=== PATIENT | female | born 1985 | race American Indian/Alaskan Native ===

== ENCOUNTER 2021-02-11 23:50 | Outpatient (CLI) | payer BC, MEDICAID ==
[2021-02-12 00:26] VITALS: BP 119/80
[2021-02-12] MEDS ORDERED: LACTATED RINGERS 1,000 ML IV ONE (01:52)
[2021-02-12 02:13] LABS: Bilirubin,Urine NEG (Negative); Blood,Urine NEG (Negative); Color,Urine Yellow (Yellow); Mucus,Urine 1+ /HPF; Protein,Urine <15 mg/dL mg/dL (Negative); Urobilinogen,Urine < 2.0 mg/dL (<2.0)
[2021-02-12] MEDS ORDERED: ACETAMINOPHEN 500 MG TAB PO ONE (02:51)
== END 2021-02-12 03:30 | disposition home or self-care (01) ==
LOC: TRG 23:50 → APU 02-12 01:36 → TRG 02-12 03:30
PROVIDERS: ATTEND Obstetrics & Gynecology
DX: O26.892 Other specified pregnancy related conditions, second trimester (principal); R10.30 Lower abdominal pain, unspecified; O24.312 Unspecified pre-existing diabetes mellitus in pregnancy, second trimester; O10.912 Unspecified pre-existing hypertension complicating pregnancy, second trimester; Z3A.25 25 weeks gestation of pregnancy
CPT/HCPCS: 59025; 81001; 96360; J7120

== ENCOUNTER 2021-05-07 15:08 | Inpatient (IN) | payer BC, MEDICAID ==
[2021-05-07] MEDS ORDERED: LACTATED RINGERS 1,000 ML ONE (15:44)
[2021-05-07] MEDS ORDERED: ACETAMINOPHEN 325 MG TAB PO PRN (15:48)
[2021-05-07] MEDS ORDERED: ONDANSETRON 4 MG/2 ML INJ IV PRN (15:48)
[2021-05-07] MEDS ORDERED: BUTORPHANOL 2 MG/1 ML INJ IV PRN (15:48)
[2021-05-07] MEDS ORDERED: LOPERAMIDE 2 MG CAP PO PRN (15:48)
[2021-05-07] MEDS ORDERED: miSOPROStol 200 MCG TAB PR PRN (15:48)
[2021-05-07] MEDS ORDERED: TERBUTALINE 1 MG/1 ML INJ SUB-Q PRN (15:48)
[2021-05-07] MEDS ORDERED: CARBOPROST TROMETHAMINE 250 MCG/1 ML INJ IM PRN (15:48)
[2021-05-07] MEDS ORDERED: miSOPROStol 25 MCG TAB VG ONE (15:48)
[2021-05-07] MEDS ORDERED: MINERAL OIL 30 ML ORAL LIQD PO PRN (15:48)
[2021-05-07] MEDS ORDERED: METHYLERGONOVINE MALEATE 0.2 MG/ML VIAL IM PRN (15:48)
[2021-05-07] MEDS ORDERED: DINOPROSTONE 10 MG VAG SUPP VG ONE (15:48)
[2021-05-07] MEDS ORDERED: LIDOCAINE (2%) 20 MG/1 ML VIAL 20 ML MDV INFILTRATI ONE (15:48)
[2021-05-07] MEDS ORDERED: OXYTOCIN 10 UNIT/1 ML INJ IM PRN (15:48)
[2021-05-07] MEDS ORDERED: NALOXONE 0.4 MG/1 ML INJ IV PRN (15:48)
[2021-05-07] MEDS ORDERED: ePHEDrine SULFATE 50 MG/1 ML INJ IV PRN (15:48)
[2021-05-07 16:56] LABS: Hematocrit 34.6 % (30.3-42.9); Hemoglobin 11.5 gm/dl (10.1-14.3); Mean Corpuscular HGB Conc 33 % (30-34); Mean Corpuscular Volume 83 fl (79-97); Red Blood Count 4.15 M/mm3 (3.65-5.03); Red Cell Distribution Width 12.9 % (13.2-15.2)
[2021-05-07 17:03] LABS: Platelet Count 155 K/mm3 (140-440)
--- NOTE | 2021-05-07 17:10 | History and Physical Report ---
History of Present Illness Date of examination: 05/07/21 Date of admission: 05/07/21 15:48 Chief complaint: IOL secondary to CHTN History of present illness: 36yo, @ 37.5 wks, initiated care with [facility] [employer] @ 10.2 wks gestation. Her has been complicated by type 2 diabetes, CHTN, positive GBS in urine, and abnormal PAP with HRHPV. Her care was co-managed by [facility] specialist. She presents to [facility] for IOL secondary to CHTN and DM. Reports +FM. Denies any VB or LOF at this time. Labs: B+, antibody negative; rubella immune; VDRL non-reactive; HBsAg negative; HIV negative; HSV2 negative; GC/Chlamydia/Trichomonas negative; MSAFP/Multiple marke r negative; 24 hr urine:103; GBS positive. Past History Past Medical History: diabetes (type II) Past Surgical History: breast surgery (reduction) [employer] History: chlamydia (2015; 2018) Family/Genetic History: hypertension Social history: , lives with family, full code. denies: smoking, alcohol abuse, prescription drug abuse, IV drug use - Obstetrical History Expected Date of Delivery: 05/23/21 Actual Gestation: 37 Week(s) 5 Day(s) : 2 Para: 1 Hx # Term Pregnancies: 1 Number of Pregnancies: 0 Spontaneous Abortions: 0 Induced : 0 Number of Living Children: 1 #1 Infant Gender: Male year: 2[age][birth year] Birthweight: 3.374 kg Method of Delivery: Vaginal Gestational age at delivery: 39 Complications: none Medications and Allergies Allergies Allergy/AdvReac Type Severity Reaction Status Date / Time No Known Allergies Allergy Verified 02/12/21 01:55 Home Medications Medication Instructions Recorded Confirmed Last Taken Type Labetalol 100mg TAB 05/07/21 05/07/21 14:00 History 1 Active Meds: Active Medications Acetaminophen (Acetaminophen 325 Mg Tab) 650 mg PO Q4H PRN PRN Reason: Pain, Mild (1-3) Butorphanol Tartrate (Butorphanol 2 Mg/1 Ml Inj) 2 mg IV Q2H PRN PRN Reason: Pain , Severe (7-10) Carboprost Tromethamine (Carboprost Tromethamine 250 Mcg/1 Ml Inj) 250 mcg IM ONCE PRN PRN Reason: Uterine Bleeding Ephedrine Sulfate (Ephedrine Sulfate 50 Mg/1 Ml Inj) 10 mg IV Q2M PRN PRN Reason: Hypotension Fentanyl (Fentanyl 100 Mcg/2 Ml Inj) 100 mcg IV Q2H PRN PRN Reason: Pain,Severe (7-10) LABOR PAIN Lactated Ringer's (Lactated Ringers) 1,000 mls @ 125 mls/hr IV DIRECT YASHIRA Oxytocin/Sodium Chloride (Pitocin/Ns 30 Unit/500ml) 30 units in 500 mls @ 40 mls/hr IV TITR YASHIRA; Protocol Loperamide HCl (Loperamide 2 Mg Cap) 2 mg PO ONCE PRN PRN Reason: give with Hemabate Methylergonovine Maleate (Methylergonovine Maleate 0.2 Mg/Ml Vial) 0.2 mg IM ONCE PRN PRN Reason: Uterine Bleeding Mineral Oil (Mineral Oil 30 Ml Oral Liqd) 30 ml PO QHS PRN PRN Reason: Constipation Misoprostol (Misoprostol 200 Mcg Tab) 800 mcg TX ONCE PRN PRN Reason: Uterine Bleeding Misoprostol (Misoprostol 25 Mcg Tab) 50 mcg PO Q4H YASHIRA Stop: 05/08/21 05:01 Naloxone HCl (Naloxone 0.4 Mg/1 Ml Inj) 0.1 mg IV Q2MIN PRN PRN Reason: Res Rate </= 8 or 02 SAT < 92% Ondansetron HCl (Ondansetron 4 Mg/2 Ml Inj) 4 mg IV Q8H PRN PRN Reason: Nausea And Vomiting Oxytocin (Oxytocin 10 Unit/1 Ml Inj) 10 unit IM ONCE PRN PRN Reason: Uterine Bleeding Terbutaline Sulfate (Terbutaline 1 Mg/1 Ml Inj) 0.25 mg SUB-Q ONCE PRN PRN Reason: Hyperstimulation/Hypertonicity - Vital Signs Vital signs: Vital Signs Temp Pulse Pulse Ox 98.7 F 105 H 98 05/07/21 15:57 05/07/21 15:57 05/07/21 15:57 Temp Pulse Resp BP Pulse Ox 98.7 F 105 H 127/81 99 05/07/21 15:57 05/07/21 16:57 05/07/21 16:11 05/07/21 16:57 - Physical Exam Breasts: Positive: normal Cardiovascular: Regular rate Lungs: Positive: Normal air movement Abdomen: Positive: other (gravid) Genitourinary (Female): Positive: normal external genitalia, normal perenium Vagina: Positive: normal moisture Uterus: Positive: enlarged (S=D) Extremities: Positive: edema Deep Tendon Reflex Grade: Normal +2 - Obstetrical FHR: category 1 Uterine Contraction Monitor Mode: External Cervical Dilatation: 0 (per RN) Cervical Effacement Percentage: 50 station: -3 Uterine Tone Measurement Phase: Resting Results All other labs normal. Assessment and Plan - Patient Problems (1) Chronic hypertension Current Visit: Yes Status: Acute Plan to address problem: IOL with Cytotec per orders Pain meds as desired per orders Monitor B/Ps closely Anticipate (2) Type 2 diabetes mellitus affecting , antepartum Current Visit: Yes Status: Acute Plan to address problem: Monitor blood glucose levels as ordered (3) Positive GBS test Current Visit: Yes Status: Acute Plan to address problem: Initiate GBS prophylaxis when SROM occurs or when in active labor
[2021-05-07] MEDS: miSOPROStol 25 MCG TAB PO SCH ×2 (17:33→21:38)
[2021-05-07] MEDS ORDERED: AMPICILLIN/NS 2 GM/100 ML 2 GM/100 ML BAG IV ONE (18:18)
[2021-05-07] MEDS ORDERED: AMPICILLIN/NS 1 GM/50 ML 1 GM/50 ML BAG IV SCH (23:00)
[2021-05-07] MEDS: fentaNYL 100 MCG/2 ML INJ IV PRN (23:53)
[2021-05-08] MEDS: miSOPROStol 25 MCG TAB PO SCH ×2 (01:38→05:45)
[2021-05-08] MEDS: fentaNYL 100 MCG/2 ML INJ IV PRN ×4 (02:08→11:41)
[2021-05-08] MEDS: LACTATED RINGERS 1,000 ML IV SCH ×2 (02:39→08:50)
--- NOTE | 2021-05-08 08:29 | Progress Note ---
Assessment and Plan A: IUP at 37w6d Chronic HTN on Labetalol 100 mg BID Pregestational Diabetes, Diet Controlled GBS Positive status P: Routine intrapartum care Continue to closely monitor and status Subjective - Subjective Date of service: 05/08/21 Principal diagnosis: cHTN, GDM, Interval history: Pt without complaints presents. Received cytotec overnight. Pt just ate and showered with plan for pitocin 2 by 2. Patient reports: contractions, no new complaints, no loss of fluid, no vaginal bleeding Objective - Vital Signs Vital Signs: Vital Signs - 12hr 05/07/21 05/07/21 05/07/21 20:31 20:32 20:33 Temperature 98.9 F Pulse Rate 101 H Respiratory Rate Blood Pressure Blood Pressure [Left] O2 Sat by Pulse 100 Oximetry O2 Sat by Pulse 100 Oximetry [ Throughout] 05/07/21 05/07/21 05/07/21 20:36 20:41 20:46 Temperature Pulse Rate 103 H 105 H 101 H Respiratory Rate Blood Pressure 138/84 Blood Pressure [Left] O2 Sat by Pulse 100 100 99 Oximetry O2 Sat by Pulse Oximetry [ Throughout] 05/07/21 05/07/21 05/07/21 20:51 20:56 21:01 Temperature Pulse Rate 113 H 103 H 102 H Respiratory Rate Blood Pressure Blood Pressure [Left] O2 Sat by Pulse 99 99 99 Oximetry O2 Sat by Pulse Oximetry [ Throughout] 05/07/21 05/07/21 05/07/21 21:06 21:12 21:17 Temperature Pulse Rate 99 H 101 H 99 H Respiratory Rate Blood Pressure Blood Pressure [Left] O2 Sat by Pulse 99 99 99 Oximetry O2 Sat by Pulse Oximetry [ Throughout] 05/07/21 05/07/21 05/07/21 21:22 21:27 21:32 Temperature Pulse Rate 103 H 110 H 103 H Respiratory Rate Blood Pressure Blood Pressure [Left] O2 Sat by Pulse 99 99 99 Oximetry O2 Sat by Pulse Oximetry [ Throughout] 05/07/21 05/07/21 05/07/21 21:37 21:42 21:47 Temperature Pulse Rate 107 H 101 H 101 H Respiratory Rate Blood Pressure Blood Pressure [Left] O2 Sat by Pulse 99 99 99 Oximetry O2 Sat by Pulse Oximetry [ Throughout] 01/20/22 01/20/22 01/20/22 21:52 21:57 22:06 Temperature Pulse Rate 95 H 97 H 104 H Respiratory Rate Blood Pressure Blood Pressure [Left] O2 Sat by Pulse 99 99 97 Oximetry O2 Sat by Pulse Oximetry [ Throughout] 05/07/21 05/07/21 05/07/21 22:11 22:16 22:21 Temperature Pulse Rate 94 H 99 H 100 H Respiratory Rate Blood Pressure Blood Pressure [Left] O2 Sat by Pulse 99 98 98 Oximetry O2 Sat by Pulse Oximetry [ Throughout] 05/07/21 05/07/21 05/07/21 22:26 22:31 22:40 Temperature Pulse Rate 98 H 102 H 98 H Respiratory Rate Blood Pressure Blood Pressure [Left] O2 Sat by Pulse 98 97 99 Oximetry O2 Sat by Pulse Oximetry [ Throughout] 05/07/21 05/07/21 05/07/21 22:44 22:45 22:50 Temperature Pulse Rate 90 94 H 97 H Respiratory Rate Blood Pressure 128/77 Blood Pressure [Left] O2 Sat by Pulse 99 99 Oximetry O2 Sat by Pulse Oximetry [ Throughout] 05/07/21 05/07/21 05/07/21 22:55 23:00 23:05 Temperature Pulse Rate 98 H 99 H 98 H Respiratory Rate Blood Pressure Blood Pressure [Left] O2 Sat by Pulse 99 98 100 Oximetry O2 Sat by Pulse Oximetry [ Throughout] 05/07/21 05/07/21 05/07/21 23:10 23:15 23:25 Temperature Pulse Rate 102 H 102 H 107 H Respiratory Rate Blood Pressure Blood Pressure [Left] O2 Sat by Pulse 98 99 98 Oximetry O2 Sat by Pulse Oximetry [ Throughout] 05/07/21 05/07/21 05/07/21 23:30 23:35 23:37 Temperature Pulse Rate 102 H 94 H 94 H Respiratory Rate Blood Pressure 122/73 Blood Pressure [Left] O2 Sat by Pulse 99 98 Oximetry O2 Sat by Pulse Oximetry [ Throughout] 05/07/21 05/07/21 05/07/21 23:40 23:45 23:53 Temperature Pulse Rate 104 H 91 H 92 H Respiratory 18 Rate Blood Pressure Blood Pressure [Left] O2 Sat by Pulse 100 99 99 Oximetry O2 Sat by Pulse Oximetry [ Throughout] 05/07/21 05/08/21 05/08/21 23:58 00:03 00:08 Temperature Pulse Rate 92 H 95 H 98 H Respiratory Rate Blood Pressure Blood Pressure [Left] O2 Sat by Pulse 97 97 97 Oximetry O2 Sat by Pulse Oximetry [ Throughout] 05/08/21 05/08/21 05/08/21 00:13 00:18 00:23 Temperature Pulse Rate 99 H 99 H 94 H Respiratory Rate Blood Pressure Blood Pressure [Left] O2 Sat by Pulse 98 98 99 Oximetry O2 Sat by Pulse Oximetry [ Throughout] 05/08/21 05/08/21 05/08/21 00:28 00:33 00:37 Temperature Pulse Rate 91 H 103 H 92 H Respiratory Rate Blood Pressure 128/72 Blood Pressure [Left] O2 Sat by Pulse 98 98 Oximetry O2 Sat by Pulse Oximetry [ Throughout] 05/08/21 05/08/21 05/08/21 00:38 00:43 00:48 Temperature Pulse Rate 97 H 99 H 102 H Respiratory Rate Blood Pressure Blood Pressure [Left] O2 Sat by Pulse 98 98 99 Oximetry O2 Sat by Pulse Oximetry [ Throughout] 05/08/21 05/08/21 05/08/21 00:53 00:58 01:03 Temperature Pulse Rate 102 H 102 H 93 H Respiratory 18 Rate Blood Pressure Blood Pressure [Left] O2 Sat by Pulse 98 97 99 Oximetry O2 Sat by Pulse Oximetry [ Throughout] 05/08/21 05/08/21 05/08/21 01:09 01:14 01:19 Temperature Pulse Rate 105 H 93 H 95 H Respiratory Rate Blood Pressure Blood Pressure [Left] O2 Sat by Pulse 99 98 99 Oximetry O2 Sat by Pulse Oximetry [ Throughout] 05/08/21 05/08/21 05/08/21 01:24 01:30 01:36 Temperature 98.9 F Pulse Rate 93 H 96 H Respiratory Rate Blood Pressure Blood Pressure [Left] O2 Sat by Pulse 100 99 Oximetry O2 Sat by Pulse Oximetry [ Throughout] 05/08/21 05/08/21 05/08/21 01:41 01:46 01:51 Temperature Pulse Rate 97 H 91 H 91 H Respiratory Rate Blood Pressure Blood Pressure [Left] O2 Sat by Pulse 99 99 99 Oximetry O2 Sat by Pulse Oximetry [ Throughout] 05/08/21 05/08/21 05/08/21 01:56 02:04 02:08 Temperature Pulse Rate 89 96 H Respiratory 18 Rate Blood Pressure Blood Pressure [Left] O2 Sat by Pulse 99 99 Oximetry O2 Sat by Pulse Oximetry [ Throughout] 05/08/21 05/08/21 05/08/21 02:09 02:14 02:19 Temperature Pulse Rate 95 H 98 H 97 H Respiratory Rate Blood Pressure Blood Pressure [Left] O2 Sat by Pulse 98 98 98 Oximetry O2 Sat by Pulse Oximetry [ Throughout] 05/08/21 05/08/21 05/08/21 02:24 02:29 02:34 Temperature Pulse Rate 98 H 95 H 100 H Respiratory Rate Blood Pressure Blood Pressure [Left] O2 Sat by Pulse 98 99 99 Oximetry O2 Sat by Pulse Oximetry [ Throughout] 05/08/21 05/08/21 05/08/21 02:37 02:39 02:44 Temperature Pulse Rate 96 H 95 H 99 H Respiratory Rate Blood Pressure 124/68 Blood Pressure [Left] O2 Sat by Pulse 99 99 Oximetry O2 Sat by Pulse Oximetry [ Throughout] 05/08/21 05/08/21 05/08/21 02:49 02:54 02:59 Temperature Pulse Rate 100 H 103 H 100 H Respiratory Rate Blood Pressure Blood Pressure [Left] O2 Sat by Pulse 98 99 99 Oximetry O2 Sat by Pulse Oximetry [ Throughout] 05/08/21 05/08/21 05/08/21 03:04 03:08 03:09 Temperature Pulse Rate 100 H 103 H Respiratory 18 Rate Blood Pressure Blood Pressure [Left] O2 Sat by Pulse 99 99 Oximetry O2 Sat by Pulse Oximetry [ Throughout] 05/08/21 05/08/21 05/08/21 03:14 03:19 03:24 Temperature Pulse Rate 100 H 102 H 102 H Respiratory Rate Blood Pressure Blood Pressure [Left] O2 Sat by Pulse 99 99 99 Oximetry O2 Sat by Pulse Oximetry [ Throughout] 05/08/21 05/08/21 05/08/21 03:29 03:34 03:37 Temperature Pulse Rate 105 H 97 H 102 H Respiratory Rate Blood Pressure 134/76 Blood Pressure [Left] O2 Sat by Pulse 99 99 Oximetry O2 Sat by Pulse Oximetry [ Throughout] 05/08/21 05/08/21 05/08/21 03:39 03:44 03:52 Temperature Pulse Rate 102 H 103 H 101 H Respiratory Rate Blood Pressure Blood Pressure [Left] O2 Sat by Pulse 98 99 100 Oximetry O2 Sat by Pulse Oximetry [ Throughout] 05/08/21 05/08/21 05/08/21 03:57 04:02 04:07 Temperature Pulse Rate 102 H 101 H 100 H Respiratory Rate Blood Pressure Blood Pressure [Left] O2 Sat by Pulse 99 99 99 Oximetry O2 Sat by Pulse Oximetry [ Throughout] 05/08/21 05/08/21 05/08/21 04:12 04:17 04:22 Temperature Pulse Rate 109 H 109 H 110 H Respiratory Rate Blood Pressure Blood Pressure [Left] O2 Sat by Pulse 98 100 98 Oximetry O2 Sat by Pulse Oximetry [ Throughout] 05/08/21 05/08/21 05/08/21 04:27 04:32 04:37 Temperature Pulse Rate 104 H 103 H 102 H Respiratory Rate Blood Pressure 123/76 Blood Pressure [Left] O2 Sat by Pulse 100 98 98 Oximetry O2 Sat by Pulse Oximetry [ Throughout] 05/08/21 05/08/21 05/08/21 04:42 04:47 04:52 Temperature Pulse Rate 102 H 99 H 118 H Respiratory Rate Blood Pressure Blood Pressure [Left] O2 Sat by Pulse 99 99 98 Oximetry O2 Sat by Pulse Oximetry [ Throughout] 05/08/21 05/08/21 05/08/21 04:57 05:02 05:07 Temperature Pulse Rate 109 H 106 H 106 H Respiratory Rate Blood Pressure Blood Pressure [Left] O2 Sat by Pulse 98 98 100 Oximetry O2 Sat by Pulse Oximetry [ Throughout] 05/08/21 05/08/21 05/08/21 05:13 05:18 05:23 Temperature Pulse Rate 107 H 107 H 104 H Respiratory Rate Blood Pressure Blood Pressure [Left] O2 Sat by Pulse 99 99 98 Oximetry O2 Sat by Pulse Oximetry [ Throughout] 05/08/21 05/08/21 05/08/21 05:28 05:33 05:36 Temperature Pulse Rate 102 H 101 H 100 H Respiratory Rate Blood Pressure Blood Pressure [Left] O2 Sat by Pulse 98 99 94 Oximetry O2 Sat by Pulse Oximetry [ Throughout] 05/08/21 05/08/21 05/08/21 05:37 05:40 05:45 Temperature Pulse Rate 96 H 95 H 98 H Respiratory Rate Blood Pressure 128/81 Blood Pressure [Left] O2 Sat by Pulse 99 99 Oximetry O2 Sat by Pulse Oximetry [ Throughout] 05/08/21 05/08/21 05/08/21 05:50 05:55 06:00 Temperature Pulse Rate 102 H 102 H 107 H Respiratory 18 Rate Blood Pressure Blood Pressure [Left] O2 Sat by Pulse 99 97 97 Oximetry O2 Sat by Pulse Oximetry [ Throughout] 05/08/21 05/08/21 05/08/21 06:05 06:06 06:10 Temperature Pulse Rate 107 H 104 H 101 H Respiratory Rate Blood Pressure Blood Pressure [Left] O2 Sat by Pulse 96 94 97 Oximetry O2 Sat by Pulse Oximetry [ Throughout] 05/08/21 05/08/21 05/08/21 06:15 06:20 06:25 Temperature Pulse Rate 99 H 101 H 101 H Respiratory Rate Blood Pressure Blood Pressure [Left] O2 Sat by Pulse 98 96 97 Oximetry O2 Sat by Pulse Oximetry [ Throughout] 05/08/21 05/08/21 05/08/21 06:30 06:35 06:38 Temperature Pulse Rate 99 H 97 H 90 Respiratory Rate Blood Pressure 126/69 Blood Pressure [Left] O2 Sat by Pulse 97 99 Oximetry O2 Sat by Pulse Oximetry [ Throughout] 05/08/21 05/08/21 05/08/21 06:40 06:45 06:50 Temperature Pulse Rate 94 H 93 H 95 H Respiratory 18 Rate Blood Pressure Blood Pressure [Left] O2 Sat by Pulse 98 99 99 Oximetry O2 Sat by Pulse Oximetry [ Throughout] 05/08/21 05/08/21 05/08/21 06:55 07:00 07:05 Temperature Pulse Rate 99 H 93 H 92 H Respiratory Rate Blood Pressure Blood Pressure [Left] O2 Sat by Pulse 100 99 99 Oximetry O2 Sat by Pulse Oximetry [ Throughout] 05/08/21 05/08/21 05/08/21 07:10 07:15 07:20 Temperature Pulse Rate 95 H 95 H 98 H Respiratory Rate Blood Pressure Blood Pressure [Left] O2 Sat by Pulse 100 99 99 Oximetry O2 Sat by Pulse Oximetry [ Throughout] 05/08/21 05/08/21 05/08/21 07:23 07:25 07:30 Temperature 98.8 F Pulse Rate 98 H 90 Respiratory 16 Rate Blood Pressure 140/89 Blood Pressure 140/89 [Left] O2 Sat by Pulse 100 100 Oximetry O2 Sat by Pulse 100 Oximetry [ Throughout] 05/08/21 05/08/21 07:35 07:38 Temperature Pulse Rate 97 H 92 H Respiratory Rate Blood Pressure 146/94 Blood Pressure [Left] O2 Sat by Pulse 99 Oximetry O2 Sat by Pulse Oximetry [ Throughout] - Exam Breasts: deferred Abdomen: Present: soft (gravid ) FHR: auscultation normal Uterine Contraction Monitor Mode: External Cervical Dilatation: 1.5 (per RN ) Uterine Contraction Pattern: Irregular Uterine Tone Measurement Phase: Resting Uterine Contraction Intensity: Mild Extremities: edema (trace) - Labs Labs: Abnormal Labs 05/07/21 16:25 RDW 12.9 L Laboratory Results - last 24 hr 05/07/21 05/07/21 16:25 16:25 WBC 9.6 RBC 4.15 Hgb 11.5 Hct 34.6 MCV 83 MCH 28 MCHC 33 RDW 12.9 L Plt Count 155 Blood Type B POSITIVE Antibody Screen Negative
[2021-05-08] MEDS ORDERED: OXYTOCIN DRIP 30 UNITS/500 ML BAG IV SCH (09:00)
[2021-05-08] MEDS ORDERED: fentaNYL-BUPIV 2 MCG/ML-0.125% 200 MCG/100 ML BAG EPIDURAL ONE (13:27)
[2021-05-08] MEDS ORDERED: ePHEDrine SULFATE 50 MG/1 ML INJ IV PRN (13:45)
[2021-05-08] MEDS ORDERED: NALOXONE 2 MG/2 ML INJ IV PRN (13:45)
--- NOTE | 2021-05-08 13:46 | Anesthesia Day of Surgery ---
Anesthesia Day of Surgery - Day of Surgery Patient Examined: Yes Patient H&P Reviewed: Yes Patient is NPO: Yes
--- NOTE | 2021-05-08 13:48 | Anesthesia Consultation ---
Anesthesia Consult and Med Hx Date of service: 05/08/21 - Airway Mallampati Class: Class II Intubation Access Assessment: Probably Good - Pre-Operative Health Status ASA Pre-Surgery Classification: ASA2 Proposed Anesthetic Plan: Epidural (GA if needed) - Pulmonary Hx Asthma: No - Cardiovascular System Hx Hypertension: Yes - Central Nervous System Hx Seizures: No Hx Psychiatric Problems: No - Endocrine Hx Renal Disease: No Hx Hypothyroidism: No Hx Hyperthyroidism: No - Hematic Hx Sickle Cell Disease: No - Other Systems Hx Alcohol Use: No
[2021-05-08] MEDS ORDERED: fentaNYL-BUPIV 2 MCG/ML-0.125% 200 MCG/100 ML BAG EPIDURAL SCH (14:00)
--- NOTE | 2021-05-08 17:04 | Event Note ---
Date: 05/08/21 On-call physician called regarding difficulty obtaining continuous monitoring externally. RN given permission to place FSE.
[2021-05-08] MEDS: OXYTOCIN DRIP 30 UNITS/500 ML BAG IV SCH ×2 (17:39→18:13)
--- NOTE | 2021-05-08 18:03 | Procedure Note ---
OB Delivery Note - Delivery Date of Delivery: 05/08/21 Surgeon: CIARA FLOWERS Estimated blood loss: 300cc - Vaginal Delivery presentation: vertex Delivery position: OA Intrapartum events: PROM->1hr before delivery, decreased FHT variability, mult.variable deceleratio, shoulder dystocia (Head delivered LIZZY. Shoulder dystocia ~ 30 seconds relieved with Antony and suprapubic pressure. Shoulders and body then delivered. placed on maternal abdomen. Cord clamped and cut and handed to NICU staff in attendance ) Delivery induction: misoprostol Delivery augmentation: pitocin Delivery monitor: external uterine, internal FHT Route of delivery: Delivery placenta: spontaneous Episiotomy: none Delivery laceration: other (midline periurethral, bilateral labial. left labial hemostatic. right labial repaired with 2-0 chromic in a figure of eight fashion) Delivery repair: chromic Anesthesia: epidural - A at 1 minute: 6 at 5 minutes: 9 Gender: Male (3330g (7lb 5oz) @ 1733 pm)
[2021-05-08] MEDS ORDERED: MAGNESIUM SULFATE 4 GM/100 ML BAG IV ONE (18:59)
[2021-05-08] MEDS ORDERED: MAGNESIUM SULFATE 40GM/1000ML 40 GM/1,000 ML BAG IV SCH (19:00)
[2021-05-08] MEDS ORDERED: WITCH HAZEL/ GLYCERIN PAD TP PRN (21:16)
[2021-05-08] MEDS ORDERED: PROMETHAZINE 25 MG TAB PO PRN (21:16)
[2021-05-08] MEDS ORDERED: LANOLIN/ZINC/DIMETHICONE (LANSINOH) 7 GM TP PRN ×2 (21:16)
[2021-05-08] MEDS ORDERED: MAGNESIUM HYDROXIDE (MOM) ORAL LIQD UDC PO PRN (21:16)
[2021-05-08] MEDS ORDERED: PROMETHAZINE 25 MG RECT SUPP PR PRN (21:16)
[2021-05-08] MEDS ORDERED: diphenhydrAMINE 25 MG CAP PO PRN (21:16)
[2021-05-08] MEDS ORDERED: BENZOCAINE/MENTHOL 20/0.5% TOP SPRAY 56 GM TP PRN (21:16)
[2021-05-08] MEDS ORDERED: ONDANSETRON 4 MG/2 ML INJ IV PRN (21:16)
[2021-05-08] MEDS ORDERED: HYDROcodone/ACETAMINOPHEN 5-325 MG TAB PO PRN (21:16)
[2021-05-08] MEDS: IBUPROFEN 600 MG TAB PO SCH (21:59)
[2021-05-08] MEDS: FERROUS SULFATE 325 MG TAB PO SCH (21:59)
[2021-05-09] MEDS: IBUPROFEN 600 MG TAB PO SCH (06:00)
[2021-05-09] MEDS ORDERED: LACTATED RINGERS 1,000 ML IV SCH (06:00)
[2021-05-09 07:42] LABS: Hematocrit 31.4 % (30.3-42.9)
[2021-05-09] MEDS: FERROUS SULFATE 325 MG TAB PO SCH ×2 (10:01→21:58)
--- NOTE | 2021-05-09 13:23 | Post Anesthesia Evaluation ---
- Post Anesthesia Evaluation Patient Participated: Yes Airway Patent: Yes Stable Respiratory Function: Yes Nausea/Vomiting: No Temp > 96.8F: Yes Pain Manageable: Yes Adequeate Hydration: Yes Anesthesia Complications: No Block Receding Appropriately: Yes Patient on Ventilator: No
--- NOTE | 2021-05-09 15:59 | Progress Note ---
Assessment and Plan day 1 status post with a subsequent mild hemorrhage, now resolved. Patient is doing well. She has no complaints. Consider discharge tomorrow. Subjective - Subjective Date of service: 05/09/21 Principal diagnosis: cHTN, GDM, Interval history: Patient delivered on yesterday evening approximately 5:30 PM. She was placed on mat for blood pressures. During the night patient had 2 episodes where large clots were expressed. A Cytotec 800 mg was placed per rectum. At that point the magnesium was DC'd to allow for better hemostasis. The magnesium was restarted 2 hours later subsequently another large clot was expressed. The patient's pressure has been well controlled on her current regimen of labetalol 100 twice a day. The magnesium was discontinued and she was moved to mother- baby Patient reports: appetite normal, voiding normally, pain well controlled : doing well Objective - Vital Signs Latest vital signs: Vital Signs Temp Pulse Resp BP BP Pulse Ox Pulse Ox 05/09/21 13:10 98.7 F 95 H 18 120/68 100 100 05/09/21 12:09 94 H 99 05/09/21 12:04 89 99 05/09/21 11:59 86 129/78 100 05/09/21 11:54 91 H 100 05/09/21 11:49 100 H 99 05/09/21 11:44 89 132/80 100 05/09/21 11:39 100 H 99 05/09/21 11:34 101 H 99 05/09/21 11:30 96 H 135/82 05/09/21 11:29 101 H 99 05/09/21 11:24 99 H 98 05/09/21 11:19 100 H 100 05/09/21 11:15 95 H 120/71 05/09/21 11:14 94 H 99 05/09/21 11:09 91 H 100 05/09/21 10:42 94 H 100 05/09/21 10:37 99 H 100 05/09/21 10:32 101 H 100 05/09/21 10:30 95 H 121/69 05/09/21 10:27 98 H 99 05/09/21 10:22 99 H 100 05/09/21 10:17 107 H 99 05/09/21 10:15 96 H 135/86 05/09/21 10:12 95 H 100 05/09/21 10:07 93 H 100 05/09/21 10:02 98 H 100 05/09/21 09:57 94 H 99 05/09/21 09:52 102 H 100 05/09/21 09:47 91 H 98 05/09/21 09:46 98 05/09/21 09:42 91 H 98 05/09/21 09:37 96 H 98 05/09/21 09:33 86 113/62 05/09/21 09:32 92 H 98 05/09/21 09:27 89 98 05/09/21 09:22 89 99 05/09/21 09:17 89 99 05/09/21 09:12 91 H 98 05/09/21 09:07 100 H 100 05/09/21 09:02 93 H 128/73 99 05/09/21 08:57 100 H 100 05/09/21 08:52 99 H 100 05/09/21 08:47 95 H 99 05/09/21 08:42 99 H 100 05/09/21 08:37 99 H 100 05/09/21 08:32 100 H 133/78 99 05/09/21 08:27 93 H 100 05/09/21 08:22 93 H 99 05/09/21 08:17 82 99 05/09/21 08:12 101 H 100 05/09/21 08:07 96 H 100 05/09/21 08:02 86 125/73 99 05/09/21 07:57 85 100 05/09/21 07:52 88 99 05/09/21 07:47 89 99 05/09/21 07:42 87 100 05/09/21 07:37 89 99 05/09/21 07:32 85 120/72 99 05/09/21 07:27 92 H 99 05/09/21 07:22 92 H 99 05/09/21 07:17 98 H 100 05/09/21 07:12 87 98 05/09/21 07:07 99 H 100 05/09/21 07:03 90 121/60 05/09/21 07:02 90 97 05/09/21 06:57 90 97 05/09/21 06:52 95 H 100 05/09/21 06:47 89 98 05/09/21 06:42 91 H 99 05/09/21 06:37 91 H 99 05/09/21 06:33 88 133/81 05/09/21 06:32 87 99 05/09/21 06:27 89 99 05/09/21 06:22 86 99 05/09/21 06:17 91 H 100 05/09/21 06:12 89 100 05/09/21 06:07 92 H 100 05/09/21 06:03 87 134/79 05/09/21 06:02 86 98 05/09/21 05:57 92 H 99 05/09/21 05:52 94 H 99 05/09/21 05:47 95 H 99 05/09/21 05:42 95 H 99 05/09/21 05:37 101 H 99 05/09/21 05:33 90 124/80 05/09/21 05:32 89 99 05/09/21 05:27 95 H 99 05/09/21 05:22 93 H 98 05/09/21 05:17 98 H 99 05/09/21 05:16 97 H 93 05/09/21 05:12 95 H 97 05/09/21 05:07 101 H 100 05/09/21 05:03 94 H 121/71 05/09/21 05:02 95 H 98 05/09/21 04:57 95 H 99 05/09/21 04:52 99 H 97 05/09/21 04:47 104 H 99 05/09/21 04:42 93 H 99 05/09/21 04:37 94 H 99 05/09/21 04:33 103 H 102/69 05/09/21 04:32 98 H 99 05/09/21 04:27 92 H 99 05/09/21 04:22 95 H 99 05/09/21 04:17 91 H 99 05/09/21 04:12 92 H 99 05/09/21 04:07 90 99 05/09/21 04:03 91 H 100/51 05/09/21 04:02 90 99 05/09/21 03:57 93 H 99 05/09/21 03:52 96 H 100 05/09/21 03:47 90 99 05/09/21 03:42 94 H 99 05/09/21 03:37 98.5 F 90 18 102/57 99 05/09/21 03:33 95 H 102/57 05/09/21 03:32 96 H 99 05/09/21 03:27 97 H 99 05/09/21 03:22 92 H 99 05/09/21 03:17 95 H 99 05/09/21 03:12 95 H 98 05/09/21 03:07 106 H 100 05/09/21 03:03 97 H 123/69 05/09/21 03:02 96 H 98 05/09/21 02:57 102 H 96 05/09/21 02:52 100 H 98 05/09/21 02:50 105 H 93 05/09/21 02:47 100 H 99 05/09/21 02:42 98 H 99 05/09/21 02:37 100 H 99 05/09/21 02:33 101 H 102/51 05/09/21 02:32 101 H 98 05/09/21 02:27 102 H 98 05/09/21 02:22 96 H 98 05/09/21 02:17 103 H 98 05/09/21 02:12 98 H 98 05/09/21 02:07 98 H 98 05/09/21 02:03 100 H 104/56 05/09/21 02:02 101 H 99 05/09/21 01:57 99 H 99 05/09/21 01:52 98 H 99 05/09/21 01:47 99 H 99 05/09/21 01:42 99 H 98 05/09/21 01:37 98 H 99 05/09/21 01:33 96 H 103/55 05/09/21 01:32 100 H 99 05/09/21 01:27 99 H 99 05/09/21 01:22 103 H 99 05/09/21 01:17 102 H 100 05/09/21 01:12 100 H 99 05/09/21 01:07 100 H 100 05/09/21 01:03 111 H 128/64 05/09/21 01:02 109 H 99 05/09/21 00:57 104 H 99 05/09/21 00:52 97 H 98 05/09/21 00:47 97 H 98 05/09/21 00:42 99 H 97 05/09/21 00:37 98 H 97 05/09/21 00:33 98 H 119/63 05/09/21 00:32 98 H 99 05/09/21 00:27 98 H 99 05/09/21 00:22 106 H 99 05/09/21 00:17 98 H 99 05/09/21 00:12 98 H 98 05/09/21 00:07 99 H 98 05/09/21 00:05 98.3 F 102 H 18 104/57 98 05/09/21 00:02 98 H 104/57 98 05/08/21 23:57 98 H 118/58 100 05/08/21 23:54 18 05/08/21 23:52 102 H 115/69 99 05/08/21 23:47 100 H 118/71 98 05/08/21 23:42 103 H 116/70 99 05/08/21 23:37 99 H 111/71 99 05/08/21 23:32 99 H 124/69 98 05/08/21 23:27 101 H 117/68 98 05/08/21 23:22 109 H 113/68 97 05/08/21 23:17 113 H 111/68 97 05/08/21 23:12 109 H 119/71 97 05/08/21 23:07 109 H 118/74 98 05/08/21 23:02 108 H 126/74 98 05/08/21 22:57 106 H 132/84 99 05/08/21 22:52 104 H 133/83 99 05/08/21 22:47 106 H 136/90 99 05/08/21 22:42 103 H 131/87 100 05/08/21 22:37 107 H 131/83 99 05/08/21 22:32 110 H 135/84 98 05/08/21 22:27 107 H 134/81 99 05/08/21 22:23 121 H 138/81 05/08/21 22:22 125 H 100 05/08/21 22:17 111 H 145/91 100 05/08/21 22:12 117 H 130/84 98 05/08/21 22:07 112 H 134/84 98 05/08/21 22:03 129 H 150/97 05/08/21 22:02 130 H 98 05/08/21 21:59 102 H 130/78 05/08/21 21:57 122 H 130/78 98 05/08/21 21:52 124 H 126/74 98 05/08/21 21:47 130 H 131/75 98 05/08/21 21:42 126 H 129/78 99 05/08/21 21:37 122 H 132/73 98 05/08/21 21:32 121 H 131/74 99 05/08/21 21:28 117 H 131/60 05/08/21 21:27 116 H 99 05/08/21 21:22 121 H 99 05/08/21 21:17 116 H 150/92 99 05/08/21 21:12 117 H 147/95 100 05/08/21 21:07 110 H 155/96 100 05/08/21 21:02 114 H 146/98 100 05/08/21 20:58 113 H 159/89 05/08/21 20:57 113 H 100 05/08/21 20:53 114 H 142/111 05/08/21 20:52 114 H 100 05/08/21 20:47 115 H 159/99 100 05/08/21 20:42 115 H 156/99 100 05/08/21 20:37 117 H 158/99 99 05/08/21 20:32 123 H 164/102 98 05/08/21 20:27 118 H 158/101 83 L 05/08/21 20:22 118 H 160/101 100 05/08/21 20:17 119 H 159/100 100 05/08/21 20:12 122 H 174/103 100 05/08/21 20:07 113 H 157/95 100 05/08/21 20:02 113 H 147/94 100 05/08/21 19:57 118 H 155/98 100 05/08/21 19:52 113 H 148/89 100 05/08/21 19:48 115 H 151/101 05/08/21 19:47 121 H 100 05/08/21 19:42 110 H 137/79 100 05/08/21 19:37 109 H 133/78 99 05/08/21 19:32 98.8 F 96 H 22 140/85 140/85 100 05/08/21 19:30 100 05/08/21 19:28 111 H 138/85 05/08/21 19:27 110 H 100 05/08/21 19:22 109 H 162/99 100 05/08/21 19:17 123 H 100 05/08/21 19:14 112 H 161/97 05/08/21 19:12 112 H 100 05/08/21 19:07 111 H 100 05/08/21 19:02 109 H 100 05/08/21 18:59 110 H 160/102 05/08/21 18:57 75 95 05/08/21 18:46 115 H 93 05/08/21 18:44 114 H 165/102 05/08/21 18:43 112 H 90 05/08/21 18:41 114 H 100 05/08/21 18:36 110 H 83 L 05/08/21 18:30 113 H 99 05/08/21 18:29 111 H 168/89 05/08/21 18:25 118 H 99 05/08/21 18:20 111 H 100 05/08/21 18:15 115 H 142/102 98 05/08/21 18:00 99 F 05/08/21 17:59 117 H 156/87 100 05/08/21 17:54 120 H 99 05/08/21 17:49 113 H 100 05/08/21 17:44 116 H 150/82 100 05/08/21 17:39 116 H 100 05/08/21 17:36 114 H 149/80 05/08/21 17:34 116 H 100 05/08/21 17:32 93 05/08/21 17:29 118 H 136/91 100 05/08/21 17:24 123 H 100 05/08/21 17:19 118 H 100 05/08/21 17:14 115 H 141/91 100 05/08/21 17:09 110 H 100 05/08/21 17:04 118 H 100 05/08/21 16:59 128 H 130/81 100 05/08/21 16:54 119 H 100 05/08/21 16:49 111 H 100 05/08/21 16:44 117 H 125/83 100 05/08/21 16:39 115 H 100 05/08/21 16:34 120 H 100 05/08/21 16:30 115 H 124/78 05/08/21 16:29 114 H 98 05/08/21 16:24 116 H 99 05/08/21 16:19 116 H 100 05/08/21 16:15 111 H 123/81 05/08/21 16:14 112 H 100 05/08/21 16:09 111 H 100 05/08/21 16:04 114 H 100 05/08/21 16:00 108 H 132/84 05/08/21 15:59 107 H 100 Intake and Output 05/09/21 05/09/21 05/09/21 06:59 14:59 22:59 Intake Total 720 1030 Output Total 1450 700 Balance -730 330 Intake: IV 670 MAGNESIUM SULFATE 40GM/ 670 1000ML 40 gm In 1,000 ml @ 2 GM/HR 50 mls/hr IV DIRECT YASHIRA Rx#:[id number] Oral 720 360 Output: Urine 1450 700 Indwelling Catheter 1450 600 Uretheral (Wilson) 100 Other: Total, Intake Amount 240 360 Total, Output Amount 300 200 # Voids Void 1 - Exam Breasts: Present: deferred Cardiovascular: Present: Regular rate, Normal S1, Normal S2 Lungs: Present: Clear to auscultation, Normal air movement Abdomen: Present: normal appearance, soft, normal bowel sounds Vulva: both: normal Uterus: Present: normal, firm Extremities: Present: normal - Labs Labs: Abnormal lab results 05/08/21 05/08/21 05/09/21 Range/Units 17:58 22:08 07:19 Hgb 10.0 L (10.1-14.3) gm/dl POC Glucose 112 H 194 H (70-105) mg/dL Magnesium (1.7-2.3) mg/dL 05/09/21 05/09/21 Range/Units 07:19 14:43 Hgb (10.1-14.3) gm/dl POC Glucose 173 H (70-105) mg/dL Magnesium 3.50 H (1.7-2.3) mg/dL
[2021-05-09] MEDS ORDERED: TETANUS,DIPH,PERTUSS(ACELL) VACCINE 0.5 ML SYRINGE IM ONE (18:06)
[2021-05-09] MEDS ORDERED: MEASLES, MUMPS & RUBELLA 12,500 UNIT/0.5 ML VACCINE SUB-Q ONE (18:06)
[2021-05-10] MEDS: FERROUS SULFATE 325 MG TAB PO SCH ×2 (09:02→22:24)
[2021-05-10] MEDS: IBUPROFEN 600 MG TAB PO SCH ×2 (10:00→22:23)
--- NOTE | 2021-05-10 15:01 | Discharge Summary ---
Providers - Providers Date of Admission: 05/07/21 15:48 Date of discharge: 05/10/21 Attending physician: MARY JANE ALEX 05/08/21 21:16 Consult to Thermometer Tester [CONS] Routine Reason For Exam: assistance with , SNS Primary care physician: [employer] Hospitalization Reason for admission: active labor Delivery: Episiotomy: none Laceration: none Other procedures: none complications: other (elevated blood pressure) Christiana baby: female Hospital course: pt had 2 episodes of post bleeding requiring cytotec Condition at discharge: Stable Disposition: HOME / SELF CARE / HOMELESS Plan - Discharge Medications Prescriptions: Ferrous Sulfate [Feosol 325 MG tab] 325 mg PO BID #60 tablet labetaloL [Labetalol 100mg TAB] 100 mg PO BID #60 Ibuprofen [Motrin] 800 mg PO Q8HR PRN #40 tablet PRN Reason: Pain, Mild (1-3) - Provider Discharge Summary Activity: routine, no sex for 6 weeks, no heavy lifting 4 weeks, no strenuous exercise Diet: routine Instructions: routine Additional instructions: [] Smoking cessation referral if applicable(refer to patient education folder for contact #) [] Refer to [facility]'s [facility] Booklet Call your doctor immediately for: * Fever > 100.5 * Heavy vaginal bleeding ( >1 pad per hour) * Severe persistent headache * Shortness of breath * Reddened, hot, painful area to leg or breast * Drainage or odor from incision. * Keep incision clean and dry at all times and follow doctor's instructions regarding bathing/showering - Follow up plan Follow up: PRIMARY CARE, [Primary Care Provider] - 14 Days
[2021-05-10 22:56] VITALS: BP 158/100
== END 2021-05-10 22:36 | disposition home or self-care (01) | DRG 806 ==
LOC: LD 15:08 → UNDOADMIN 15:08 → LD 15:48 → OB 05-09 13:03
PROVIDERS: ADMIT Obstetrics & Gynecology; ATTEND Obstetrics & Gynecology
PROC: 10E0XZZ Delivery of Products of Conception, External Approach (ICD-10-PCS; principal; 2021-05-08)
PROC: 0UQMXZZ Repair Vulva, External Approach (ICD-10-PCS; 2021-05-08)
PROC: 3E0R3BZ Introduction of Anesthetic Agent into Spinal Canal, Percutaneous Approach (ICD-10-PCS; 2021-05-08)
PROC: 00HU33Z Insertion of Infusion Device into Spinal Canal, Percutaneous Approach (ICD-10-PCS; 2021-05-08)
PROC: 3E0234Z Introduction of Serum, Toxoid and Vaccine into Muscle, Percutaneous Approach (ICD-10-PCS; 2021-05-09)
PROC: 3E0134Z Introduction of Serum, Toxoid and Vaccine into Subcutaneous Tissue, Percutaneous Approach (ICD-10-PCS; 2021-05-09)
DX: O42.02 Full-term premature rupture of membranes, onset of labor within 24 hours of rupture (principal); O72.1 Other immediate postpartum hemorrhage; Z37.0 Single live birth; O99.824 Streptococcus B carrier state complicating childbirth; O24.429 Gestational diabetes mellitus in childbirth, unspecified control; O16.4 Unspecified maternal hypertension, complicating childbirth; O76 Abnormality in fetal heart rate and rhythm complicating labor and delivery; O66.0 Obstructed labor due to shoulder dystocia; O71.82 Other specified trauma to perineum and vulva; Z3A.37 37 weeks gestation of pregnancy; Z86.79 Personal history of other diseases of the circulatory system; Z20.822 Contact with and (suspected) exposure to COVID-19; Z23 Encounter for immunization
CPT/HCPCS: 36415; 82962; 83735; 85014; 85018; 85027; 86850; 86900; 86901; 88307; G0378; J3490; J0290; J2590; J3010; J3475; J7120; U0003